=== PATIENT | female | born 1980 | race Caucasian/White ===

== ENCOUNTER 2022-10-31 17:25 | Emergency (ER) | payer MEDICAID, OTHER ==
[~2022-10-31] VITALS: Ht 185.4 cm; Wt 130.0 kg
[2022-10-31] MEDS ORDERED: CEPH-322 PO (22:15)
[2022-10-31] MEDS ORDERED: BACITRACIN TOP OINT 1 UD PKG TOP ONE (22:15)
[2022-10-31] MEDS ORDERED: ONDANSETRON ODT 4 MG TAB PO ONE (22:15)
[2022-10-31] MEDS ORDERED: ONDA-144 PO (22:15)
[2022-10-31] MEDS ORDERED: OXYCODONE W/ ACETAMINOPHEN 5/325MG TABLET PO ONE (22:15)
[2022-10-31] MEDS ORDERED: BAC09TP TOP (22:15)
[2022-10-31] MEDS ORDERED: PERCOT PO (22:15)
[2022-10-31 22:28] VITALS: BP 134/52
== END 2022-10-31 22:29 | disposition home or self-care (01) ==
LOC: ER 17:25 → EDBD 17:25 → ER 22:29
DX: S16.1XXA Strain of muscle, fascia and tendon at neck level, initial encounter (principal); S20.319A Abrasion of unspecified front wall of thorax, initial encounter; G44.309 Post-traumatic headache, unspecified, not intractable; V43.52XA Car driver injured in collision with other type car in traffic accident, initial encounter; Y93.89 Activity, other specified; Y92.89 Other specified places as the place of occurrence of the external cause; Y99.8 Other external cause status
CPT/HCPCS: 70450; 71250; 72125; 74176